=== PATIENT | male | born 1990 | race Caucasian/White ===

== ENCOUNTER 2021-03-03 17:06 | Emergency (ER) | payer OTHER, MEDICAID ==
[2021-03-03] MEDS ORDERED: IBUPROFEN800 MG PO (22:44)
[2021-03-03] MEDS ORDERED: AMOXICILLIN875 MG PO (22:44)
== END 2021-03-03 23:00 | disposition home or self-care (01) ==
LOC: ER1 17:06
DX: S02.2XXA Fracture of nasal bones, initial encounter for closed fracture (principal); Y04.8XXA Assault by other bodily force, initial encounter
CPT/HCPCS: 70486; 81001; 99284